=== PATIENT | female | born 1980 ===

== ENCOUNTER 2020-04-03 12:35 | Inpatient (IN) | payer OTHER ==
[2020-04-03] MEDS ORDERED: ePHEDrine SULFATE 50 MG/1 ML INJ IV PRN (13:57)
[2020-04-03] MEDS ORDERED: LIDOCAINE (2%) 20 MG/1 ML VIAL 20 ML MDV INFILTRATI ONE (13:57)
[2020-04-03] MEDS ORDERED: MINERAL OIL 30 ML ORAL LIQD PO PRN (13:57)
[2020-04-03] MEDS ORDERED: DINOPROSTONE 10 MG VAG SUPP VG ONE (13:57)
[2020-04-03] MEDS ORDERED: TERBUTALINE 1 MG/1 ML INJ SUB-Q PRN (13:57)
[2020-04-03] MEDS ORDERED: BUTORPHANOL 2 MG/1 ML INJ IV PRN (13:58)
[2020-04-03] MEDS ORDERED: OXYTOCIN DRIP 30 UNITS/500 ML BAG IV SCH (14:00)
[2020-04-03] MEDS ORDERED: OXYTOCIN 20 UNIT/1000ML DRIP 20 UNITS/1,000 ML BAG IV SCH (14:00)
--- NOTE | 2020-04-03 14:03 | History and Physical Report ---
History of Present Illness Date of examination: 04/03/20 Date of admission: 04/03/20 13:17 Chief complaint: Presents from office for induction of labor due to a non-reactive NST in the office. History of present illness: Early entry to care at [facility], course complicated by a UTI and a abnormal 1hour GTT followed by a normal 3hour GTT. Past History Past Medical History: thyroid disease Past Surgical History: no surgical history Family/Genetic History: diabetes (FATHER) Social history: no significant social history - Obstetrical History Expected Date of Delivery: 04/04/20 Actual Gestation: 39 Week(s) 6 Day(s) : 4 Para: 3 Hx # Term Pregnancies: 3 Number of Living Children: 3 #1 Gender: Female year: 2,[birth year] Birthweight: 3.175 kg Method of Delivery: Vaginal Gestational age at delivery: 40 Complications: none #2 Infant Gender: Male year: 2[birth year] Birthweight: 3.629 kg Method of Delivery: Vaginal Gestational age at delivery: 41 Complications: none #3 Gender: Male year: 2,[birth year] Birthweight: 2.722 kg Method of Delivery: Vaginal Gestational age at delivery: 41 Complications: none Review of Systems All systems: negative - Vital Signs Vital signs: Vital Signs Pulse BP 80 120/70 04/03/20 13:18 04/03/20 13:18 Temp Pulse Resp BP Pulse Ox 97.7 F 76 18 120/70 98 04/03/20 13:51 04/03/20 13:54 04/03/20 13:51 04/03/20 13:51 04/03/20 13:54 - Physical Exam Breasts: Positive: normal Cardiovascular: Regular rate Lungs: Positive: Clear to auscultation, Normal air movement Abdomen: Positive: normal appearance, soft, normal bowel sounds Genitourinary (Female): Positive: normal external genitalia, normal perenium Vagina: Positive: normal moisture Uterus: Positive: enlarged Anus/Rectum: Positive: normal perianal skin - Obstetrical FHR: category 1 Uterine Contraction Monitor Mode: External Cervical Dilatation: 0 Uterine Contraction Pattern: Absent Uterine Tone Measurement Phase: Resting Uterine Contraction Intensity: Moderate Results All other labs normal. Assessment and Plan A: IUP @ 39 6/7 Weeks Category I Tracing AMA Maternal Obesity GBS Negative P: Admit to L&D per Routine Orders Cervidil Induction
[2020-04-03 15:13] LABS: Hematocrit 36.3 % (30.3-42.9); Hemoglobin 12.5 gm/dl (10.1-14.3); Mean Corpuscular HGB Conc 35 % (30-34); Mean Corpuscular Volume 84 fl (79-97); Platelet Count 244 K/mm3 (140-440); Red Blood Count 4.33 M/mm3 (3.65-5.03); Red Cell Distribution Width 18.8 % (13.2-15.2)
[2020-04-03] MEDS: LACTATED RINGERS 1,000 ML IV SCH ×2 (15:19→22:26)
[2020-04-04] MEDS: LACTATED RINGERS 1,000 ML IV SCH ×2 (06:18→14:15)
--- NOTE | 2020-04-04 09:50 | Progress Note ---
Assessment and Plan - Patient Problems (1) Encounter for induction of labor Current Visit: Yes Status: Acute Plan to address problem: Initiate Pitocin @ 2 mu/min, titrate as tolerated Pain meds as desired Anticipate (2) Advanced maternal age (AMA), 40 years or greater Current Visit: Yes Status: Acute (3) Thyroid disease Current Visit: Yes Status: Acute Subjective - Subjective Date of service: 04/04/20 Principal diagnosis: IOL Interval history: See admission H & P Patient reports: new complaints (c/o H/A), movement normal, contractions, no loss of fluid, no vaginal bleeding Objective - Vital Signs Vital Signs: Vital Signs - 12hr 04/03/20 04/03/20 04/03/20 21:48 21:53 21:58 Temperature Pulse Rate 79 84 75 Respiratory Rate Blood Pressure O2 Sat by Pulse 97 97 97 Oximetry 04/03/20 04/03/20 04/03/20 22:03 22:08 22:13 Temperature Pulse Rate 72 86 77 Respiratory Rate Blood Pressure O2 Sat by Pulse 97 97 97 Oximetry 04/03/20 04/03/20 04/03/20 22:18 22:23 22:28 Temperature Pulse Rate 72 73 80 Respiratory Rate Blood Pressure 129/67 O2 Sat by Pulse 99 99 96 Oximetry 04/03/20 04/03/20 04/03/20 22:33 22:38 22:43 Temperature Pulse Rate 84 67 76 Respiratory Rate Blood Pressure O2 Sat by Pulse 97 99 98 Oximetry 04/03/20 04/03/20 04/03/20 22:48 22:53 22:58 Temperature Pulse Rate 80 83 75 Respiratory Rate Blood Pressure O2 Sat by Pulse 98 98 98 Oximetry 04/03/20 04/03/20 04/03/20 23:03 23:09 23:14 Temperature Pulse Rate 74 79 72 Respiratory Rate Blood Pressure O2 Sat by Pulse 97 96 97 Oximetry 04/03/20 04/03/20 04/03/20 23:19 23:31 23:36 Temperature Pulse Rate 80 87 73 Respiratory Rate Blood Pressure O2 Sat by Pulse 97 98 98 Oximetry 04/03/20 04/03/20 04/03/20 23:41 23:46 23:51 Temperature Pulse Rate 66 67 71 Respiratory Rate Blood Pressure O2 Sat by Pulse 97 97 97 Oximetry 04/03/20 04/04/20 04/04/20 23:56 00:01 00:06 Temperature Pulse Rate 66 64 65 Respiratory Rate Blood Pressure O2 Sat by Pulse 98 98 97 Oximetry 04/04/20 04/04/20 04/04/20 00:11 00:16 00:19 Temperature 97.7 F Pulse Rate 66 66 Respiratory 18 Rate Blood Pressure O2 Sat by Pulse 97 97 Oximetry 04/04/20 04/04/20 04/04/20 00:21 00:26 00:28 Temperature Pulse Rate 63 77 69 Respiratory Rate Blood Pressure 109/58 O2 Sat by Pulse 97 96 92 Oximetry 04/04/20 04/04/20 04/04/20 00:31 00:35 00:36 Temperature Pulse Rate 70 68 72 Respiratory Rate Blood Pressure O2 Sat by Pulse 95 94 98 Oximetry 04/04/20 04/04/20 04/04/20 00:41 00:46 00:51 Temperature Pulse Rate 83 66 70 Respiratory Rate Blood Pressure O2 Sat by Pulse 96 97 97 Oximetry 04/04/20 04/04/20 04/04/20 00:56 00:59 01:01 Temperature Pulse Rate 63 76 82 Respiratory Rate Blood Pressure O2 Sat by Pulse 97 94 96 Oximetry 04/04/20 04/04/20 04/04/20 01:03 01:08 01:13 Temperature Pulse Rate 85 70 67 Respiratory Rate Blood Pressure O2 Sat by Pulse 97 97 98 Oximetry 04/04/20 04/04/20 04/04/20 01:18 01:23 01:28 Temperature Pulse Rate 74 75 67 Respiratory Rate Blood Pressure O2 Sat by Pulse 97 97 96 Oximetry 04/04/20 04/04/20 04/04/20 01:33 01:38 01:43 Temperature Pulse Rate 72 70 78 Respiratory Rate Blood Pressure O2 Sat by Pulse 98 99 98 Oximetry 04/04/20 04/04/20 04/04/20 01:48 01:53 01:58 Temperature Pulse Rate 76 75 62 Respiratory Rate Blood Pressure O2 Sat by Pulse 97 98 98 Oximetry 04/04/20 04/04/20 04/04/20 02:03 02:08 02:13 Temperature Pulse Rate 76 63 70 Respiratory Rate Blood Pressure O2 Sat by Pulse 98 96 97 Oximetry 04/04/20 04/04/20 04/04/20 02:18 02:23 02:28 Temperature Pulse Rate 70 73 72 Respiratory Rate Blood Pressure O2 Sat by Pulse 98 97 97 Oximetry 04/04/20 04/04/20 04/04/20 02:33 02:38 02:43 Temperature Pulse Rate 75 82 66 Respiratory Rate Blood Pressure O2 Sat by Pulse 97 97 97 Oximetry 04/04/20 04/04/20 04/04/20 02:48 02:53 02:58 Temperature Pulse Rate 75 79 70 Respiratory Rate Blood Pressure O2 Sat by Pulse 96 97 96 Oximetry 04/04/20 04/04/20 04/04/20 03:03 03:08 03:13 Temperature Pulse Rate 72 68 67 Respiratory Rate Blood Pressure O2 Sat by Pulse 96 97 97 Oximetry 04/04/20 04/04/20 04/04/20 03:18 03:23 03:28 Temperature Pulse Rate 81 78 73 Respiratory Rate Blood Pressure O2 Sat by Pulse 97 97 95 Oximetry 04/04/20 04/04/20 04/04/20 03:33 03:38 03:43 Temperature Pulse Rate 64 68 73 Respiratory Rate Blood Pressure O2 Sat by Pulse 98 97 99 Oximetry 04/04/20 04/04/20 04/04/20 03:48 03:53 04:07 Temperature Pulse Rate 79 86 77 Respiratory Rate Blood Pressure O2 Sat by Pulse 98 99 98 Oximetry 04/04/20 04/04/20 04/04/20 04:08 04:11 04:12 Temperature 97.7 F Pulse Rate 71 74 Respiratory 18 Rate Blood Pressure 129/71 O2 Sat by Pulse 97 Oximetry 04/04/20 04/04/20 04/04/20 04:17 04:22 04:27 Temperature Pulse Rate 70 67 73 Respiratory Rate Blood Pressure O2 Sat by Pulse 97 97 96 Oximetry 04/04/20 04/04/20 04/04/20 04:32 04:37 04:42 Temperature Pulse Rate 74 74 71 Respiratory Rate Blood Pressure O2 Sat by Pulse 96 98 98 Oximetry 04/04/20 04/04/20 04/04/20 04:47 04:52 04:57 Temperature Pulse Rate 70 77 67 Respiratory Rate Blood Pressure O2 Sat by Pulse 96 97 96 Oximetry 04/04/20 04/04/20 04/04/20 05:02 05:07 05:12 Temperature Pulse Rate 77 87 82 Respiratory Rate Blood Pressure O2 Sat by Pulse 96 98 98 Oximetry 04/04/20 04/04/20 04/04/20 05:17 05:22 05:27 Temperature Pulse Rate 86 72 74 Respiratory Rate Blood Pressure O2 Sat by Pulse 97 97 97 Oximetry 04/04/20 04/04/20 04/04/20 05:29 05:32 05:36 Temperature Pulse Rate 67 64 86 Respiratory Rate Blood Pressure O2 Sat by Pulse 93 96 93 Oximetry 04/04/20 04/04/20 04/04/20 05:37 05:42 05:47 Temperature Pulse Rate 65 93 H 95 H Respiratory Rate Blood Pressure O2 Sat by Pulse 97 98 97 Oximetry 04/04/20 04/04/20 04/04/20 05:52 05:57 06:02 Temperature Pulse Rate 89 78 75 Respiratory Rate Blood Pressure O2 Sat by Pulse 97 96 97 Oximetry 04/04/20 04/04/20 04/04/20 06:07 06:12 06:17 Temperature Pulse Rate 82 78 79 Respiratory Rate Blood Pressure O2 Sat by Pulse 97 96 96 Oximetry 04/04/20 04/04/20 04/04/20 06:22 06:27 06:32 Temperature Pulse Rate 89 86 80 Respiratory Rate Blood Pressure O2 Sat by Pulse 97 97 97 Oximetry 04/04/20 04/04/20 04/04/20 06:37 06:42 06:45 Temperature Pulse Rate 70 76 73 Respiratory Rate Blood Pressure O2 Sat by Pulse 98 96 94 Oximetry 04/04/20 04/04/20 04/04/20 06:47 06:52 06:53 Temperature Pulse Rate 72 78 77 Respiratory Rate Blood Pressure O2 Sat by Pulse 96 98 93 Oximetry 04/04/20 04/04/20 04/04/20 06:57 07:02 07:07 Temperature Pulse Rate 69 77 88 Respiratory Rate Blood Pressure O2 Sat by Pulse 95 96 97 Oximetry 04/04/20 04/04/20 04/04/20 07:12 07:17 07:22 Temperature Pulse Rate 88 78 98 H Respiratory Rate Blood Pressure O2 Sat by Pulse 98 97 98 Oximetry 04/04/20 04/04/20 04/04/20 07:24 07:27 07:32 Temperature 98.5 F Pulse Rate 80 84 Respiratory Rate Blood Pressure O2 Sat by Pulse 98 98 Oximetry 04/04/20 04/04/20 04/04/20 07:37 07:42 07:47 Temperature Pulse Rate 78 75 81 Respiratory Rate Blood Pressure O2 Sat by Pulse 99 97 97 Oximetry 04/04/20 04/04/20 04/04/20 07:52 07:57 08:00 Temperature Pulse Rate 86 83 69 Respiratory Rate Blood Pressure O2 Sat by Pulse 98 96 94 Oximetry 04/04/20 04/04/20 04/04/20 08:02 08:05 08:07 Temperature Pulse Rate 81 80 83 Respiratory Rate Blood Pressure O2 Sat by Pulse 98 94 97 Oximetry 04/04/20 04/04/20 04/04/20 08:12 08:17 08:22 Temperature Pulse Rate 88 87 92 H Respiratory Rate Blood Pressure O2 Sat by Pulse 96 97 96 Oximetry 04/04/20 04/04/20 04/04/20 08:27 08:32 08:35 Temperature Pulse Rate 89 92 H 31 L Respiratory Rate Blood Pressure O2 Sat by Pulse 94 97 83 L Oximetry 04/04/20 04/04/20 04/04/20 08:37 08:42 08:43 Temperature Pulse Rate 89 82 86 Respiratory Rate Blood Pressure O2 Sat by Pulse 96 96 93 Oximetry 04/04/20 04/04/20 04/04/20 08:47 08:52 08:55 Temperature Pulse Rate 85 93 H 82 Respiratory Rate Blood Pressure 129/76 O2 Sat by Pulse 97 97 Oximetry 04/04/20 04/04/20 04/04/20 09:07 09:12 09:17 Temperature Pulse Rate 88 89 87 Respiratory Rate Blood Pressure O2 Sat by Pulse 97 97 96 Oximetry 04/04/20 04/04/20 04/04/20 09:22 09:27 09:31 Temperature Pulse Rate 72 81 77 Respiratory Rate Blood Pressure O2 Sat by Pulse 96 97 94 Oximetry 04/04/20 04/04/20 04/04/20 09:32 09:37 09:42 Temperature Pulse Rate 76 93 H 89 Respiratory Rate Blood Pressure O2 Sat by Pulse 96 97 96 Oximetry - Exam Breasts: deferred Cardiovascular: Regular rate Lungs: Normal air movement FHR: category 1 Uterine Contraction Monitor Mode: External Cervical Dilatation: 2.5 (per RN) Cervical Effacement Percentage: 50 station: -3 Uterine Contraction Pattern: Irregular Uterine Tone Measurement Phase: Resting Uterine Contraction Intensity: Mild - Labs Labs: Abnormal Labs 04/03/20 04/03/20 04/03/20 14:12 19:45 20:47 MCHC 35 H RDW 18.8 H POC Glucose 263 H 243 H 04/03/20 21:43 MCHC RDW POC Glucose 193 H Laboratory Results - last 24 hr 04/03/20 04/03/20 04/03/20 14:12 14:12 19:45 WBC 9.1 RBC 4.33 Hgb 12.5 Hct 36.3 MCV 84 MCH 29 MCHC 35 H RDW 18.8 H Plt Count 244 POC Glucose 263 H Blood Type A POSITIVE Antibody Screen Negative 04/03/20 04/03/20 04/03/20 20:47 21:43 23:43 WBC RBC Hgb Hct MCV MCH MCHC RDW Plt Count POC Glucose 243 H 193 H 104 Blood Type Antibody Screen
[2020-04-04] MEDS ORDERED: ACETAMINOPHEN 325 MG TAB PO ONE (10:00)
--- NOTE | 2020-04-04 14:28 | Progress Note ---
Assessment and Plan - Patient Problems (1) Encounter for induction of labor Current Visit: Yes Status: Acute Plan to address problem: AROM clear fluids, tolerated well IUPC placed without difficulty Continue Pitocin titration as tolerated Pain meds as desired Anticipate (2) Advanced maternal age (AMA), 40 years or greater Current Visit: Yes Status: Acute (3) Thyroid disease Current Visit: Yes Status: Acute Subjective - Subjective Date of service: 04/04/20 (1400) Principal diagnosis: IOL Interval history: See admission H & P Patient reports: movement normal, contractions (irregular), no loss of fluid, no vaginal bleeding Objective - Vital Signs Vital Signs: Vital Signs - 12hr 04/04/20 04/04/20 04/04/20 02:28 02:33 02:38 Temperature Pulse Rate 72 75 82 Respiratory Rate Blood Pressure O2 Sat by Pulse 97 97 97 Oximetry 04/04/20 04/04/20 04/04/20 02:43 02:48 02:53 Temperature Pulse Rate 66 75 79 Respiratory Rate Blood Pressure O2 Sat by Pulse 97 96 97 Oximetry 04/04/20 04/04/20 04/04/20 02:58 03:03 03:08 Temperature Pulse Rate 70 72 68 Respiratory Rate Blood Pressure O2 Sat by Pulse 96 96 97 Oximetry 04/04/20 04/04/20 04/04/20 03:13 03:18 03:23 Temperature Pulse Rate 67 81 78 Respiratory Rate Blood Pressure O2 Sat by Pulse 97 97 97 Oximetry 04/04/20 04/04/20 04/04/20 03:28 03:33 03:38 Temperature Pulse Rate 73 64 68 Respiratory Rate Blood Pressure O2 Sat by Pulse 95 98 97 Oximetry 04/04/20 04/04/20 04/04/20 03:43 03:48 03:53 Temperature Pulse Rate 73 79 86 Respiratory Rate Blood Pressure O2 Sat by Pulse 99 98 99 Oximetry 04/04/20 04/04/20 04/04/20 04:07 04:08 04:11 Temperature 97.7 F Pulse Rate 77 71 Respiratory 18 Rate Blood Pressure 129/71 O2 Sat by Pulse 98 Oximetry 04/04/20 04/04/20 04/04/20 04:12 04:17 04:22 Temperature Pulse Rate 74 70 67 Respiratory Rate Blood Pressure O2 Sat by Pulse 97 97 97 Oximetry 04/04/20 04/04/20 04/04/20 04:27 04:32 04:37 Temperature Pulse Rate 73 74 74 Respiratory Rate Blood Pressure O2 Sat by Pulse 96 96 98 Oximetry 04/04/20 04/04/20 04/04/20 04:42 04:47 04:52 Temperature Pulse Rate 71 70 77 Respiratory Rate Blood Pressure O2 Sat by Pulse 98 96 97 Oximetry 04/04/20 04/04/20 04/04/20 04:57 05:02 05:07 Temperature Pulse Rate 67 77 87 Respiratory Rate Blood Pressure O2 Sat by Pulse 96 96 98 Oximetry 04/04/20 04/04/20 04/04/20 05:12 05:17 05:22 Temperature Pulse Rate 82 86 72 Respiratory Rate Blood Pressure O2 Sat by Pulse 98 97 97 Oximetry 04/04/20 04/04/20 04/04/20 05:27 05:29 05:32 Temperature Pulse Rate 74 67 64 Respiratory Rate Blood Pressure O2 Sat by Pulse 97 93 96 Oximetry 04/04/20 04/04/20 04/04/20 05:36 05:37 05:42 Temperature Pulse Rate 86 65 93 H Respiratory Rate Blood Pressure O2 Sat by Pulse 93 97 98 Oximetry 04/04/20 04/04/20 04/04/20 05:47 05:52 05:57 Temperature Pulse Rate 95 H 89 78 Respiratory Rate Blood Pressure O2 Sat by Pulse 97 97 96 Oximetry 04/04/20 04/04/20 04/04/20 06:02 06:07 06:12 Temperature Pulse Rate 75 82 78 Respiratory Rate Blood Pressure O2 Sat by Pulse 97 97 96 Oximetry 04/04/20 04/04/20 04/04/20 06:17 06:22 06:27 Temperature Pulse Rate 79 89 86 Respiratory Rate Blood Pressure O2 Sat by Pulse 96 97 97 Oximetry 04/04/20 04/04/20 04/04/20 06:32 06:37 06:42 Temperature Pulse Rate 80 70 76 Respiratory Rate Blood Pressure O2 Sat by Pulse 97 98 96 Oximetry 04/04/20 04/04/20 04/04/20 06:45 06:47 06:52 Temperature Pulse Rate 73 72 78 Respiratory Rate Blood Pressure O2 Sat by Pulse 94 96 98 Oximetry 04/04/20 04/04/20 04/04/20 06:53 06:57 07:02 Temperature Pulse Rate 77 69 77 Respiratory Rate Blood Pressure O2 Sat by Pulse 93 95 96 Oximetry 04/04/20 04/04/20 04/04/20 07:07 07:12 07:17 Temperature Pulse Rate 88 88 78 Respiratory Rate Blood Pressure O2 Sat by Pulse 97 98 97 Oximetry 04/04/20 04/04/20 04/04/20 07:22 07:24 07:27 Temperature 98.5 F Pulse Rate 98 H 80 Respiratory Rate Blood Pressure O2 Sat by Pulse 98 98 Oximetry 04/04/20 04/04/20 04/04/20 07:32 07:37 07:42 Temperature Pulse Rate 84 78 75 Respiratory Rate Blood Pressure O2 Sat by Pulse 98 99 97 Oximetry 04/04/20 04/04/20 04/04/20 07:47 07:52 07:57 Temperature Pulse Rate 81 86 83 Respiratory Rate Blood Pressure O2 Sat by Pulse 97 98 96 Oximetry 04/04/20 04/04/20 04/04/20 08:00 08:02 08:05 Temperature Pulse Rate 69 81 80 Respiratory Rate Blood Pressure O2 Sat by Pulse 94 98 94 Oximetry 04/04/20 04/04/20 04/04/20 08:07 08:12 08:17 Temperature Pulse Rate 83 88 87 Respiratory Rate Blood Pressure O2 Sat by Pulse 97 96 97 Oximetry 04/04/20 04/04/20 04/04/20 08:22 08:27 08:32 Temperature Pulse Rate 92 H 89 92 H Respiratory Rate Blood Pressure O2 Sat by Pulse 96 94 97 Oximetry 04/04/20 04/04/20 04/04/20 08:35 08:37 08:42 Temperature Pulse Rate 31 L 89 82 Respiratory Rate Blood Pressure O2 Sat by Pulse 83 L 96 96 Oximetry 04/04/20 04/04/20 04/04/20 08:43 08:47 08:52 Temperature Pulse Rate 86 85 93 H Respiratory Rate Blood Pressure O2 Sat by Pulse 93 97 97 Oximetry 04/04/20 04/04/20 04/04/20 08:55 09:07 09:12 Temperature Pulse Rate 82 88 89 Respiratory Rate Blood Pressure 129/76 O2 Sat by Pulse 97 97 Oximetry 04/04/20 04/04/20 04/04/20 09:17 09:22 09:27 Temperature Pulse Rate 87 72 81 Respiratory Rate Blood Pressure O2 Sat by Pulse 96 96 97 Oximetry 04/04/20 04/04/20 04/04/20 09:31 09:32 09:37 Temperature Pulse Rate 77 76 93 H Respiratory Rate Blood Pressure O2 Sat by Pulse 94 96 97 Oximetry 04/04/20 04/04/20 04/04/20 09:42 09:46 09:47 Temperature Pulse Rate 89 90 93 H Respiratory Rate Blood Pressure 123/61 O2 Sat by Pulse 96 94 96 Oximetry 04/04/20 04/04/20 04/04/20 09:52 09:57 09:59 Temperature Pulse Rate 84 80 79 Respiratory Rate Blood Pressure O2 Sat by Pulse 97 96 94 Oximetry 04/04/20 04/04/20 04/04/20 10:02 10:07 10:12 Temperature Pulse Rate 80 94 H 82 Respiratory Rate Blood Pressure O2 Sat by Pulse 96 98 97 Oximetry 04/04/20 04/04/20 04/04/20 10:16 10:17 10:22 Temperature Pulse Rate 81 76 82 Respiratory Rate Blood Pressure 124/79 O2 Sat by Pulse 97 98 Oximetry 04/04/20 04/04/20 04/04/20 10:27 10:32 10:37 Temperature Pulse Rate 79 81 83 Respiratory Rate Blood Pressure O2 Sat by Pulse 96 96 95 Oximetry 04/04/20 04/04/20 04/04/20 10:38 10:42 10:45 Temperature Pulse Rate 82 79 79 Respiratory Rate Blood Pressure O2 Sat by Pulse 94 96 94 Oximetry 04/04/20 04/04/20 04/04/20 10:47 10:52 10:57 Temperature Pulse Rate 77 84 78 Respiratory Rate Blood Pressure 139/70 O2 Sat by Pulse 97 97 97 Oximetry 04/04/20 04/04/20 04/04/20 11:02 11:07 11:08 Temperature Pulse Rate 83 65 87 Respiratory Rate Blood Pressure O2 Sat by Pulse 97 95 93 Oximetry 04/04/20 04/04/20 04/04/20 11:12 11:17 11:23 Temperature Pulse Rate 77 82 85 Respiratory Rate Blood Pressure 128/65 O2 Sat by Pulse 95 96 98 Oximetry 04/04/20 04/04/20 04/04/20 11:28 11:30 11:33 Temperature Pulse Rate 77 78 85 Respiratory Rate Blood Pressure O2 Sat by Pulse 97 94 96 Oximetry 04/04/20 04/04/20 04/04/20 11:38 11:40 11:43 Temperature Pulse Rate 78 70 80 Respiratory Rate Blood Pressure O2 Sat by Pulse 97 93 99 Oximetry 04/04/20 04/04/20 04/04/20 11:46 11:48 11:53 Temperature Pulse Rate 81 76 88 Respiratory Rate Blood Pressure 131/83 O2 Sat by Pulse 90 98 97 Oximetry 04/04/20 04/04/20 04/04/20 11:57 11:58 12:03 Temperature Pulse Rate 66 66 75 Respiratory Rate Blood Pressure O2 Sat by Pulse 93 95 97 Oximetry 04/04/20 04/04/20 04/04/20 12:07 12:08 12:13 Temperature Pulse Rate 75 84 80 Respiratory Rate Blood Pressure O2 Sat by Pulse 94 97 95 Oximetry 04/04/20 04/04/20 04/04/20 12:16 12:18 12:19 Temperature Pulse Rate 74 64 74 Respiratory Rate Blood Pressure 126/69 O2 Sat by Pulse 96 93 Oximetry 04/04/20 04/04/20 04/04/20 12:23 12:28 12:29 Temperature 98.3 F Pulse Rate 72 82 Respiratory Rate Blood Pressure O2 Sat by Pulse 96 97 Oximetry 04/04/20 04/04/20 04/04/20 12:33 12:38 12:43 Temperature Pulse Rate 72 84 77 Respiratory Rate Blood Pressure O2 Sat by Pulse 96 98 98 Oximetry 04/04/20 04/04/20 04/04/20 12:46 12:48 12:53 Temperature Pulse Rate 73 80 71 Respiratory Rate Blood Pressure 133/84 O2 Sat by Pulse 98 96 Oximetry 04/04/20 04/04/20 04/04/20 12:58 13:16 13:21 Temperature Pulse Rate 66 77 74 Respiratory Rate Blood Pressure O2 Sat by Pulse 96 98 97 Oximetry 04/04/20 04/04/20 04/04/20 13:26 13:31 13:36 Temperature Pulse Rate 78 77 79 Respiratory Rate Blood Pressure O2 Sat by Pulse 97 97 97 Oximetry 04/04/20 04/04/20 04/04/20 13:41 13:46 13:48 Temperature Pulse Rate 65 73 74 Respiratory Rate Blood Pressure 123/67 O2 Sat by Pulse 95 98 94 Oximetry 04/04/20 04/04/20 04/04/20 13:51 13:54 13:56 Temperature Pulse Rate 63 62 75 Respiratory Rate Blood Pressure O2 Sat by Pulse 98 93 99 Oximetry 04/04/20 04/04/20 04/04/20 14:01 14:03 14:06 Temperature Pulse Rate 91 H 69 Respiratory Rate Blood Pressure O2 Sat by Pulse 99 92 97 Oximetry 04/04/20 04/04/20 04/04/20 14:09 14:11 14:16 Temperature Pulse Rate 80 71 73 Respiratory Rate Blood Pressure 120/57 O2 Sat by Pulse 94 98 97 Oximetry 04/04/20 14:21 Temperature Pulse Rate 79 Respiratory Rate Blood Pressure O2 Sat by Pulse 97 Oximetry - Exam Breasts: deferred Cardiovascular: Regular rate Lungs: Normal air movement FHR: category 1 Uterine Contraction Monitor Mode: Internal (placed at 1403 without difficulty) Cervical Dilatation: 3 (vertex, posterior cervix) Cervical Effacement Percentage: 60 (Pitocin @ 10mu/min) station: -2 Uterine Contraction Frequency (min): 2-4 Uterine Contraction Intensity: Moderate - Labs Labs: Abnormal Labs 04/03/20 04/03/20 04/03/20 14:12 19:45 20:47 MCHC 35 H RDW 18.8 H POC Glucose 263 H 243 H 04/03/20 21:43 MCHC RDW POC Glucose 193 H Laboratory Results - last 24 hr 04/03/20 04/03/20 04/03/20 14:12 14:12 19:45 WBC 9.1 RBC 4.33 Hgb 12.5 Hct 36.3 MCV 84 MCH 29 MCHC 35 H RDW 18.8 H Plt Count 244 POC Glucose 263 H Blood Type A POSITIVE Antibody Screen Negative 04/03/20 04/03/20 04/03/20 20:47 21:43 23:43 WBC RBC Hgb Hct MCV MCH MCHC RDW Plt Count POC Glucose 243 H 193 H 104 Blood Type Antibody Screen
[2020-04-04] MEDS ORDERED: fentaNYL 100 MCG/2 ML INJ IV PRN (15:41)
[2020-04-04] MEDS ORDERED: SODIUM CHLORIDE 0.9% 1000 ML 1,000 ML IV SCH (16:57)
[2020-04-04] MEDS ORDERED: SODIUM CHLORIDE 0.9% 1000 ML 1,000 ML VG SCH (17:00)
[2020-04-04] MEDS ORDERED: DEXMEDETOMIDINE 200 MCG/2 ML VIAL IV ONE (17:13)
[2020-04-04] MEDS ORDERED: NALOXONE 2 MG/2 ML INJ IV PRN (18:10)
[2020-04-04] MEDS ORDERED: ePHEDrine SULFATE 50 MG/1 ML INJ IV PRN (18:10)
--- NOTE | 2020-04-04 18:23 | Anesthesia Consultation ---
Anesthesia Consult and Med Hx Date of service: 04/04/20 - Airway Anesthetic Teeth Evaluation: Good ROM Head & Neck: Adequate Mental/Hyoid Distance: Adequate Mallampati Class: Class III Intubation Access Assessment: Probably Good - Pulmonary Exam CTA: Yes - Cardiac Exam Cardiac Exam: RRR - Pre-Operative Health Status ASA Pre-Surgery Classification: ASA2 Proposed Anesthetic Plan: Epidural - Pulmonary Hx Smoking: Yes (stoped 2018) Hx Asthma: No Hx Respiratory Symptoms: No SOB: No COPD: No Home Oxygen Therapy: No Hx Pneumonia: No Hx Sleep Apnea: No - Cardiovascular System Hx Hypertension: No Hx Coronary Artery Disease: No Hx Heart Attack/AMI: No Hx Angina: No Hx Percutaneous Transluminal Coronary Angioplasty (PTCA): No Hx Cardia Arrhythmia: No Hx Pacemaker: No Hx Internal Defibrillator: No Hx Valvular Heart Disease: No Hx Heart Murmur: No Hx Peripheral Vascular Disease: No - Central Nervous System Hx Neuromuscular Disorder: No Hx Seizures: No CVA: No Hx Back Pain: No Hx Psychiatric Problems: No - Gastrointestinal Hx Ulcer: No Hx Gastroesophageal Reflux Disease: No - Endocrine Hx Renal Disease: No Hx End Stage Renal Disease: No Hx Cirrhosis: No Hx Liver Disease: No Hx Insulin Dependent Diabetes: No Hx Non-Insulin Dependent Diabetes: No Hx Thyroid Disease: No Hx Hypothyroidism: No Hx Hyperthyroidism: No - Hematic Hx Anemia: No Hx Sickle Cell Disease: No - Other Systems Hx Alcohol Use: No Hx Substance Use: No Hx Cancer: No Hx Obesity: Yes
[2020-04-04] MEDS ORDERED: fentaNYL-BUPIV 2 MCG/ML-0.125% 200 MCG/100 ML BAG EPIDURAL SCH (19:00)
[2020-04-04] MEDS ORDERED: diphenhydrAMINE 25 MG CAP PO PRN (19:23)
[2020-04-04] MEDS ORDERED: WITCH HAZEL/ GLYCERIN PAD TP PRN (19:23)
[2020-04-04] MEDS ORDERED: MAGNESIUM HYDROXIDE (MOM) ORAL LIQD UDC PO PRN (19:23)
[2020-04-04] MEDS ORDERED: oxyCODONE /ACETAMINOPHEN 5-325MG TAB PO PRN (19:23)
[2020-04-04] MEDS ORDERED: ONDANSETRON 4 MG/2 ML INJ IV PRN (19:23)
[2020-04-04] MEDS ORDERED: PROMETHAZINE 25 MG TAB PO PRN (19:23)
[2020-04-04] MEDS ORDERED: LANOLIN/ZINC/DIMETHICONE (LANSINOH) 7 GM TP PRN (19:23)
--- NOTE | 2020-04-04 19:32 | Procedure Note ---
OB Delivery Note - Delivery Date of Delivery: 04/04/20 (1852) Surgeon: EMIGDIO SY (CNM) Estimated blood loss: 300cc - Vaginal Delivery presentation: vertex Delivery position: OA (DAMIEN) Intrapartum events: none Delivery induction: oxytocin Delivery augmentation: rupture of membranes (AROM @ 1400 today) Delivery monitor: external FHT, internal uterine Route of delivery: Delivery placenta: spontaneous (190, nicole) Delivery cord: 3 umbilical vessels Episiotomy: none Delivery laceration: none Anesthesia: epidural Delivery comments: of viable, alert, quiet female , placed directly to maternal abdomen. Manually dried with warm blankets producing spontaneous cry. Cord double clamped, cut by FOB after cessation or pulsation. Placenta spontaneously delivered, nicole, disposed per hospital policy. Uterus firm @ U-1. Perineum intact. Mother and baby safe, stable and left in care of RN. - A at 1 minute: 8 at 5 minutes: 9 Infant Gender: Female (Weight: 3104 gms (6lbs 13ozs) 18.5 inches)
--- NOTE | 2020-04-04 21:26 | Post Anesthesia Evaluation ---
- Post Anesthesia Evaluation Patient Participated: Yes Airway Patent: Yes Stable Respiratory Function: Yes Nausea/Vomiting: No Temp > 96.8F: Yes Pain Manageable: Yes Adequeate Hydration: Yes Anesthesia Complications: No Block Receding Appropriately: Yes Patient on Ventilator: No
[2020-04-05] MEDS: IBUPROFEN 600 MG TAB PO SCH ×4 (00:06→18:05)
[2020-04-05 07:07] LABS: Hematocrit 32.3 % (30.3-42.9); Hemoglobin 10.4 gm/dl (10.1-14.3)
[2020-04-05] MEDS: PRENATAL VIT27-FE FUMARATE-FOLIC ACID VIT TAB PO SCH (09:37)
--- NOTE | 2020-04-05 14:28 | Progress Note ---
Assessment and Plan A: PP Day #1 Mild Anemia P: Follow Routine Orders Increase Dietary FeSO4 D/C Home today per Patient Request RTO in 6 Weeks Subjective - Subjective Date of service: 04/05/20 Principal diagnosis: IOL Interval history: Early entry to care at [facility], course complicated by a UTI and a abnormal 1hour GTT followed by a normal 3hour GTT. Patient reports: appetite normal, voiding normally, pain well controlled, flatus, ambulating normally : doing well, bottle feeding (and ) Objective - Vital Signs Latest vital signs: Vital Signs Temp Pulse Resp BP BP Pulse Ox 04/05/20 12:11 98 F 73 18 114/65 98 04/05/20 08:15 97.8 F 77 18 105/43 99 04/05/20 05:44 20 04/05/20 04:00 98.6 F 64 16 104/77 04/05/20 01:00 98.6 F 70 16 108/78 04/05/20 00:06 18 04/04/20 23:05 98.4 F 79 18 114/49 04/04/20 20:31 69 108/54 04/04/20 20:28 65 98 04/04/20 20:24 73 94/51 04/04/20 20:23 75 98 04/04/20 20:18 81 98 04/04/20 20:16 77 94/48 04/04/20 20:13 83 99 04/04/20 20:08 88 97 04/04/20 20:03 81 96 04/04/20 20:01 83 105/56 04/04/20 19:58 82 98 04/04/20 19:53 87 98 04/04/20 19:48 84 97 04/04/20 19:46 88 104/53 04/04/20 19:43 86 97 04/04/20 19:42 97.6 F 18 04/04/20 19:38 88 97 04/04/20 19:33 86 97 04/04/20 19:31 88 109/51 04/04/20 19:28 91 H 98 04/04/20 19:23 100 H 100 04/04/20 19:18 89 97 04/04/20 19:13 87 97 04/04/20 19:08 91 H 97 04/04/20 19:03 82 96 04/04/20 19:01 89 121/57 04/04/20 18:58 101 H 98 04/04/20 18:53 129 H 100 04/04/20 18:48 111 H 100 04/04/20 18:42 106 H 100 04/04/20 18:37 84 99 04/04/20 18:32 98 H 100 04/04/20 18:27 88 138/61 100 04/04/20 18:25 94 H 132/67 04/04/20 18:22 93 H 100 04/04/20 18:20 92 H 202/107 04/04/20 18:17 98 H 100 04/04/20 18:16 102 H 129/96 04/04/20 18:12 96 H 100 04/04/20 18:07 85 99 04/04/20 18:06 107/59 04/04/20 18:03 97 H 105/50 04/04/20 18:02 91 H 98 04/04/20 18:00 87 107/53 04/04/20 17:57 84 107/52 97 04/04/20 17:55 81 124/53 04/04/20 17:52 88 97 04/04/20 17:51 90 125/77 04/04/20 17:48 89 121/63 04/04/20 17:47 89 97 04/04/20 17:45 83 118/59 04/04/20 17:42 91 H 114/56 99 04/04/20 17:39 91 H 120/59 04/04/20 17:37 88 132/60 100 04/04/20 17:32 86 100 04/04/20 17:30 90 112/57 04/04/20 17:27 91 H 122/59 100 04/04/20 17:24 90 120/63 94 04/04/20 17:22 88 97 04/04/20 17:18 89 93 04/04/20 17:17 74 115/66 97 04/04/20 17:13 69 75 L 04/04/20 17:12 85 98 04/04/20 17:07 36 L 71 L 04/04/20 17:02 82 99 04/04/20 17:01 57 L 88 04/04/20 16:57 89 98 04/04/20 16:52 91 H 98 04/04/20 16:51 102 H 93 04/04/20 16:47 87 98 04/04/20 16:42 92 H 100 04/04/20 16:37 76 99 04/04/20 16:32 82 100 04/04/20 16:27 82 99 04/04/20 16:22 67 99 04/04/20 16:17 62 97 04/04/20 16:16 71 114/67 04/04/20 16:12 69 96 04/04/20 16:07 77 96 04/04/20 16:02 98.1 F 80 96 04/04/20 15:57 72 97 04/04/20 15:52 75 98 04/04/20 15:47 72 120/61 98 04/04/20 15:46 77 94 04/04/20 15:42 68 97 04/04/20 15:37 80 98 04/04/20 15:32 76 98 04/04/20 15:27 78 98 04/04/20 15:22 66 97 04/04/20 15:17 75 96 04/04/20 15:16 78 132/64 04/04/20 15:12 64 97 04/04/20 15:07 62 97 04/04/20 15:02 78 97 04/04/20 14:57 76 98 04/04/20 14:52 81 99 04/04/20 14:51 80 92 04/04/20 14:47 86 122/61 98 04/04/20 14:41 70 97 04/04/20 14:36 67 98 04/04/20 14:31 67 96 04/04/20 14:26 77 97 Intake and Output 04/04/20 04/05/20 04/05/20 22:59 06:59 14:59 Intake Total 540 490 Output Total 800 1200 Balance -800 -660 490 Intake: IV 10 Left Hand 10 Oral 240 480 Intake, Free Water 300 Output: Urine 800 1200 Indwelling 400 Indwelling Catheter 400 Void 1200 Other: Total, Intake Amount 240 240 Total, Output Amount 400 400 # Voids Void 1 Estimated Blood Loss 300 - Exam Breasts: Present: normal Cardiovascular: Present: Regular rate Lungs: Present: Clear to auscultation, Normal air movement Abdomen: Present: normal appearance, soft, normal bowel sounds Uterus: Present: normal, firm, fundal height below umbilicus Extremities: Present: normal
--- NOTE | 2020-04-05 14:29 | Discharge Summary ---
Providers - Providers Date of Admission: 04/03/20 13:17 Date of discharge: 04/05/20 Attending physician: AURY JACKSON Primary care physician: AURY JACKSON Hospitalization Reason for admission: induction of labor Delivery: Episiotomy: none Laceration: none Other procedures: none complications: none Discharge diagnosis: IUP at term delivered [place] baby: female Condition at discharge: Good Disposition: DC-01 TO HOME OR SELFCARE Plan - Provider Discharge Summary Activity: routine, no sex for 6 weeks, no heavy lifting 4 weeks, no strenuous exercise Diet: routine Instructions: routine Additional instructions: [] Smoking cessation referral if applicable(refer to patient education folder for contact #) [] Refer to [facility]'s [facility] Booklet Call your doctor immediately for: * Fever > 100.5 * Heavy vaginal bleeding ( >1 pad per hour) * Severe persistent headache * Shortness of breath * Reddened, hot, painful area to leg or breast * Drainage or odor from incision. * Keep incision clean and dry at all times and follow doctor's instructions regarding bathing/showering - Follow up plan Follow up: AURY JACKSON MD [Primary Care Provider] - 6 Weeks
[2020-04-06] MEDS: IBUPROFEN 600 MG TAB PO SCH ×4 (00:07→14:14)
[2020-04-06] MEDS: PRENATAL VIT27-FE FUMARATE-FOLIC ACID VIT TAB PO SCH (10:45)
[2020-04-06] MEDS ORDERED: DIPHtheria,PERTUSSIS(ACELL),TETANUS VACCINE/PF 0.5 ML VIAL IM ONE (14:23)
[2020-04-06 14:24] VITALS: BP 132/67
== END 2020-04-06 15:30 | disposition home or self-care (01) | DRG 807 ==
LOC: TRG 12:35 → APU 12:49 → TRG 13:16 → LD 13:17 → OB 04-04 23:18
PROVIDERS: ADMIT Obstetrics & Gynecology; ATTEND Obstetrics & Gynecology
PROC: 10E0XZZ Delivery of Products of Conception, External Approach (ICD-10-PCS; principal; 2020-04-04)
PROC: 3E0R3BZ Introduction of Anesthetic Agent into Spinal Canal, Percutaneous Approach (ICD-10-PCS; 2020-04-04)
PROC: 00HU33Z Insertion of Infusion Device into Spinal Canal, Percutaneous Approach (ICD-10-PCS; 2020-04-04)
PROC: 3E033VJ Introduction of Other Hormone into Peripheral Vein, Percutaneous Approach (ICD-10-PCS; 2020-04-04)
PROC: 3E0234Z Introduction of Serum, Toxoid and Vaccine into Muscle, Percutaneous Approach (ICD-10-PCS; 2020-04-06)
DX: O99.214 Obesity complicating childbirth (principal); Z37.0 Single live birth; Z3A.39 39 weeks gestation of pregnancy; E66.9 Obesity, unspecified; E07.9 Disorder of thyroid, unspecified; Z23 Encounter for immunization; Z83.3 Family history of diabetes mellitus; O99.284 Endocrine, nutritional and metabolic diseases complicating childbirth; O90.81 Anemia of the puerperium; D64.9 Anemia, unspecified
CPT/HCPCS: 36415; 59200; 82962; 85014; 85018; 85027; 86850; 86900; 86901; 90715; G0378; J2590; J3010; J3490; J7030; J7120